=== PATIENT | female | born 1950 | race Caucasian/White ===

== ENCOUNTER 2021-11-25 21:41 | Inpatient (IN) | payer MEDICARE, BC ==
[~2021-11-25] VITALS: Ht 160 cm; Wt 88.6 kg
[2021-11-25 22:37] LABS: BASOPHILS % (AUTO) 0.4 % (0-1); EOSINOPHILS # (AUTO) 0.3 X10'3 (0-0.9); EOSINOPHILS % (AUTO) 3.1 % (0-6); HEMATOCRIT 36.2 % (35.0-45.0); HEMOGLOBIN 12.3 g/dl (12.0-16.0); LYMPHOCYTES # (AUTO) 2.4 X10'3 (1.1-4.8); LYMPHOCYTES % (AUTO) 28.7 % (21-51); MEAN CORPUSCULAR HEMOGLOBIN 30.6 PG (27.0-31.0); MEAN CORPUSCULAR VOLUME 89.8 FL (78-98); MEAN PLATELET VOLUME 7.5 FL (7.4-10.4); MONOCYTES # (AUTO) 0.8 X10'3 (0-0.9); MONOCYTES % (AUTO) 9.6 % (2-12); NEUTROPHILS # (AUTO) 4.8 X10'3 (1.8-7.7); NEUTROPHILS % (AUTO) 58.2 % (42-75); PLATELET COUNT 268 X10'3 (140-440); RED BLOOD COUNT 4.03 X10'6 (4.20-5.60); RED CELL DISTRIBUTION WIDTH 13.6 % (11.5-14.5); WHITE BLOOD COUNT 8.2 X10'3 (4.5-11.0)
[2021-11-25 22:49] LABS: ALANINE AMINOTRANSFERASE 32 U/L (12-78); ALBUMIN 4.2 G/DL (3.4-5.0); ALBUMIN/GLOBULIN RATIO 1.2 (1.1-1.5); ALKALINE PHOSPHATASE 107 IU/L (46-116); ANION GAP 10 (8-16); ASPARTATE AMINO TRANSFERASE 17 U/L (10-37); BILIRUBIN,TOTAL 0.7 MG/DL (0.1-1.0); BLOOD UREA NITROGEN 13 MG/DL (7-18); BUN/CREATININE RATIO 16.5 (6.6-38.0); CALCIUM 9.1 MG/DL (8.5-10.1); CHLORIDE 102 MMOL/L (99-107); CREATININE 0.79 MG/DL (0.40-0.90); GLUCOSE 107 MG/DL (70-104); SODIUM 142 MMOL/L (135-145); TOTAL CARBON DIOXIDE 30.1 MMOL/L (24-32); TOTAL PROTEIN 7.8 G/DL (6.4-8.2); eGFR 72 ML/MIN
[2021-11-26] VITALS (9 sets, daily range): BP systolic 108–137; BP diastolic 56–69
[2021-11-26] MEDS ORDERED: CALC300T4 PO (01:15)
[2021-11-26] MEDS ORDERED: LISI2.5T14 PO (01:15)
[2021-11-26] MEDS ORDERED: ASPI81TA52 PO (01:15)
[2021-11-26] MEDS ORDERED: CARV-50 PO (01:15)
[2021-11-26] MEDS ORDERED: ACET-2006 PO (01:15)
[2021-11-26] MEDS ORDERED: ATOR80TA PO (01:15)
[2021-11-26] MEDS ORDERED: nitroGLYCERIN 1gm ointment UD TP ONE (02:20)
[2021-11-26] MEDS ORDERED: bisacodyl 10mg suppository rectal RC PRN (02:45)
[2021-11-26] MEDS ORDERED: diphenhydrAMINE 25mg capsule PO PRN (02:45)
[2021-11-26] MEDS ORDERED: HYDROcodone/acetaminophen 10/325mg tab PO PRN (02:45)
[2021-11-26] MEDS ORDERED: diphenhydrAMINE 50 mg/ml inj IV PRN (02:45)
[2021-11-26] MEDS ORDERED: morphine 2 MG/ML inj. syringe IV PRN ×2 (02:45)
[2021-11-26] MEDS ORDERED: ondansetron 4mg rapidly disintigrating tab PO PRN (02:45)
[2021-11-26] MEDS ORDERED: normal saline 1000ml 1,000 ML IV SCH (02:45)
[2021-11-26] MEDS ORDERED: HYDROcodone/acetaminophen 5mg/325mg tablet PO PRN (02:45)
[2021-11-26] MEDS ORDERED: magnesium hydroxide 30ml (MOM) UD suspension PO PRN (02:45)
[2021-11-26] MEDS ORDERED: mag hydrox/Alum hydrox/simeth 30ml oral suspension PO PRN (02:45)
[2021-11-26] MEDS ORDERED: acetaminophen 325mg tablet PO PRN ×2 (02:45)
[2021-11-26] MEDS ORDERED: ondansetron/PF 4mg/2ml inj IV PRN (02:45)
[2021-11-26] MEDS ORDERED: regadenoson 0.4mg/5ml syringe IV PRN (03:10)
[2021-11-26] MEDS ORDERED: aminophylline 500mg/20ml vial IV PRN (03:10)
[2021-11-26] MEDS ORDERED: nitroGLYCERIN 0.4mg SUBLingual tab SL PRN (03:10)
[2021-11-26] MEDS ORDERED: metoprolol tartrate 1mg/ml inj IV PRN (03:10)
--- NOTE | 2021-11-26 03:47 | NUR ---
Pt given a warm blanket and is asleep in room.
[2021-11-26 03:54] LABS: HEMOGLOBIN A1C 5.5 % (4.5-6.2)
[2021-11-26 03:59] LABS: PHOSPHORUS 3.4 MG/DL (2.3-4.5)
[2021-11-26] MEDS ORDERED: pantoprazole 40mg Tablet.DR PO SCH (07:30)
--- NOTE | 2021-11-26 07:48 | NUR ---
Patient ambulate to restroom. No signs of distress noted
[2021-11-26] MEDS ORDERED: nitroGLYCERIN 0.4mg/hour patch TD SCH (08:00)
[2021-11-26] MEDS ORDERED: docusate sod 100mg capsule PO SCH (08:00)
[2021-11-26] MEDS ORDERED: heparin, porcine 5000 units/ml vial SQ SCH (08:00)
--- NOTE | 2021-11-26 08:16 | NUR ---
Patient sent to [place] via wheelchair
[2021-11-26 10:59] LABS: APTT 29 SECONDS (22-32)
[2021-11-26 14:45] LABS: CHOL/HDL RATIO 2.8 (0.00-4.99); CHOLESTEROL 126 MG/DL (0-200); HDL CHOLESTEROL 45 MG/DL (35-60); LDL CHOLESTEROL 66 MG/DL (50-100); TRIGLYCERIDES 88 MG/DL (20-135)
[2021-11-26] MEDS ORDERED: temazepam 15mg capsule PO PRN (21:00)
== END 2021-11-26 15:12 | disposition home or self-care (01) | DRG 313 ==
LOC: ER 21:42 → ED HOLD 11-26 03:06
PROVIDERS: ADMIT Family Medicine; ATTEND Internal Medicine
PROC: 4A02XM4 Measurement of Cardiac Total Activity, External Approach (ICD-10-PCS; principal; 2021-11-26)
PROC: 3E033HZ Introduction of Radioactive Substance into Peripheral Vein, Percutaneous Approach (ICD-10-PCS; 2021-11-26)
DX: R07.89 Other chest pain (principal); I50.32 Chronic diastolic (congestive) heart failure; E78.00 Pure hypercholesterolemia, unspecified; I20.9 Angina pectoris, unspecified; I11.0 Hypertensive heart disease with heart failure; I25.2 Old myocardial infarction; Z79.82 Long term (current) use of aspirin; Z79.899 Other long term (current) drug therapy; Z85.038 Personal history of other malignant neoplasm of large intestine; Z85.3 Personal history of malignant neoplasm of breast; Z90.710 Acquired absence of both cervix and uterus; Z92.21 Personal history of antineoplastic chemotherapy; Z92.3 Personal history of irradiation; Z95.5 Presence of coronary angioplasty implant and graft; Z88.0 Allergy status to penicillin
CPT/HCPCS: 36415; 71045; 78452; 80053; 80061; 83036; 83735; 83880; 84100; 84443; 84484; 85025; 85379; 85610; 85730; 93005; 93017; 99285; A9500; G0378; J2785; J7030

== ENCOUNTER 2021-12-31 10:36 | Day surgery (SDC) | payer MEDICARE, BC ==
[2021-12-26 08:48] LABS: BASOPHILS % (AUTO) 0.5 % (0-1); EOSINOPHILS # (AUTO) 0.2 X10'3 (0-0.9); EOSINOPHILS % (AUTO) 2.5 % (0-6); HEMATOCRIT 38.7 % (35.0-45.0); LYMPHOCYTES # (AUTO) 2.1 X10'3 (1.1-4.8); LYMPHOCYTES % (AUTO) 25.8 % (21-51); MEAN CORPUSCULAR HEMOGLOBIN 30.3 PG (27.0-31.0); MEAN CORPUSCULAR HGB CONC 33.6 g/dL (33.0-36.5); MEAN CORPUSCULAR VOLUME 90.3 FL (78-98); MEAN PLATELET VOLUME 7.6 FL (7.4-10.4); MONOCYTES # (AUTO) 0.8 X10'3 (0-0.9); MONOCYTES % (AUTO) 9.2 % (2-12); PLATELET COUNT 258 X10'3 (140-440); RED BLOOD COUNT 4.29 X10'6 (4.20-5.60); RED CELL DISTRIBUTION WIDTH 13.5 % (11.5-14.5); WHITE BLOOD COUNT 8.1 X10'3 (4.5-11.0)
[2021-12-26 08:57] LABS: APTT 28 SECONDS (22-32)
[2021-12-26 08:59] LABS: ALBUMIN 4.5 G/DL (3.4-5.0); ANION GAP 12 (8-16); BLOOD UREA NITROGEN 14 MG/DL (7-18); BUN/CREATININE RATIO 18.2 (6.6-38.0); CALCIUM 9.2 MG/DL (8.5-10.1); CHLORIDE 104 MMOL/L (99-107); CHOL/HDL RATIO 2.7 (0.00-4.99); CHOLESTEROL 128 MG/DL (0-200); CREATININE 0.77 MG/DL (0.40-0.90); GLUCOSE 105 MG/DL (70-104); HDL CHOLESTEROL 47 MG/DL (35-60); LDL CHOLESTEROL 67 MG/DL (50-100); POTASSIUM 4.2 MMOL/L (3.5-5.1); SODIUM 142 MMOL/L (135-145); TOTAL CARBON DIOXIDE 26.3 MMOL/L (24-32); TRIGLYCERIDES 105 MG/DL (20-135); eGFR 74 ML/MIN
[2021-12-31] VITALS (8 sets, daily range): BP systolic 97–151; BP diastolic 44–81
[~2021-12-31] VITALS: Ht 160 cm; Wt 92.0 kg
[~2021-12-31 10:36] MED LIST: ACET-2006 PO; ASPI81TA52 PO; ATOR80TA PO; CALC300T4 PO; CARV-50 PO; LISI2.5T14 PO
[2021-12-31] MEDS ORDERED: OMEG-133 PO (10:59)
[2021-12-31] MEDS ORDERED: CHOL200012 PO (10:59)
[2021-12-31] MEDS ORDERED: ACET-890 PO (10:59)
[2021-12-31] MEDS ORDERED: normal saline 1,000 ML IV SCH (11:10)
[2021-12-31] MEDS ORDERED: diphenhydrAMINE 25mg capsule PO PRN (11:10)
[2021-12-31] MEDS ORDERED: LORazepam 0.5 MG tablet PO PRN (11:10)
[2021-12-31] MEDS ORDERED: nitroGLYCERIN-Tridil 50MG/D5W 250 ML IV ONE (11:51)
[2021-12-31] MEDS ORDERED: heparin 1,000unit/ml 10ml vial 10 ML ONE (11:52)
[2021-12-31] MEDS ORDERED: fentaNYL/PF 50MCG/1 ML 2ML syringe ONE (11:52)
[2021-12-31] MEDS ORDERED: iohexol 350MG/ML 100ml bottle IV ONE (11:52)
[2021-12-31] MEDS ORDERED: midazolam 1 mg/ML 2ml injection ONE (11:52)
[2021-12-31] MEDS ORDERED: verapamil 2.5 mg/ml inj IV ONE (11:52)
[2021-12-31] MEDS ORDERED: LIDOcaine 1%/PF 5ML 10 MG/ML VIAL ONE (11:53)
[2021-12-31] MEDS ORDERED: HYDROcodone/acetaminophen 10/325mg tab PO PRN (13:40)
[2021-12-31] MEDS ORDERED: HYDROcodone/acetaminophen 5mg/325mg tablet PO PRN (13:40)
== END 2021-12-31 16:00 | disposition home or self-care (01) ==
LOC: SSTAY O 10:36
PROVIDERS: ATTEND Student in an Organized Health Care Education/Training Program
DX: R94.39 Abnormal result of other cardiovascular function study (principal); I25.119 Atherosclerotic heart disease of native coronary artery with unspecified angina pectoris; I25.2 Old myocardial infarction; I11.0 Hypertensive heart disease with heart failure; I25.10 Atherosclerotic heart disease of native coronary artery without angina pectoris; Z79.01 Long term (current) use of anticoagulants; Z79.899 Other long term (current) drug therapy; M19.90 Unspecified osteoarthritis, unspecified site; Z88.0 Allergy status to penicillin; Z88.8 Allergy status to other drugs, medicaments and biological substances; Z85.3 Personal history of malignant neoplasm of breast; Z85.828 Personal history of other malignant neoplasm of skin; Z98.890 Other specified postprocedural states
CPT/HCPCS: 36415; 80048; 80061; 85025; 85610; 85730; 93005; 93458; A6258; C1769; C1894; J1644; J2250; J3010; J3490; J7030; Q0163; Q9967; 99152; 99153; A4620; A5120; A6402